=== PATIENT | male | born 1975 | race Caucasian/White ===

== ENCOUNTER 2016-09-26 06:11 | Day surgery (SDC) | payer OTHER ==
[2016-09-26] VITALS (10 sets, daily range): BP systolic 90–123; BP diastolic 34–76; PULSE 52–68; RESP 10–17; O2SAT 95–98
[~2016-09-26] VITALS: Ht 177.8 cm; Wt 79.8 kg
[~2016-09-26 06:11] MED LIST: CeFAZolin 2 Gm/50 mL D5W IV Premix IV ONE; LORA0.5T PO; Lactated Ringer's 1,000 ML IV ONE; MULT-1018 PO
[2016-09-26] MEDS ORDERED: fentaNYL-PF 50 mCg/mL 2 mL Inj ONE (06:12)
[2016-09-26] MEDS ORDERED: Propofol 10,000 mCg/mL 20 mL Inj ONE (06:12)
[2016-09-26] MEDS ORDERED: Dexamethasone 4 mg/mL Inj ONE (06:12)
[2016-09-26] MEDS ORDERED: Ondansetron 2 mg/mL 2 mL Inj ONE (06:12)
[2016-09-26] MEDS ORDERED: MetoCLOpramide 5 mg/mL 2 mL Inj ONE (06:12)
[2016-09-26] MEDS ORDERED: Lactated Ringer's 1,000 ML IV ONE (06:32)
[2016-09-26] MEDS ORDERED: LISI10TA PO (07:01)
--- NOTE | 2016-09-26 07:17 | PCM.HPANE ---
Patient Data Surgeon Admitting Provider: Attending Provider:Adeel Perkins MD Primary Care Physician:Betty Nunez Other Provider:Светлана Shirley Anesthesia Reason for Visit Right Inguinal Hernia Ht/WT & BMI Height (Feet): 5 Height (Inches): 10.00 Weight (Kilograms): 79.830 Body Mass Index 25.00 Allergies Coded Allergies: paroxetine (Verified Allergy, Unknown, 09/21/16) sertraline (Verified Allergy, Unknown, 09/21/16) Past Anesthesia History Anesthesia History: Denies:: Anesthesia Reactions Diabetes History Hx Diabetes?: No Medications Hypertension Medication: No Home Meds Incl Beta Jude: No Reported Medications Lisinopril 10 Mg [id number] Mg PO DAILY 30 Days Ref 0 09/26/16 Multivitamin (Multi Vitamin Daily)1 Each Tablet1 Each PO DAILY 30 Days Ref 0 09/22/16 Lorazepam 0.5 Mg Tablet0.5 Mg PO TID PRN For Anxiety Ref 0 09/21/16 Discontinued Reported Medications Citalopram Hydrobromide (Celexa)40 Mg [id number] Mg PO DAILY Ref 0 09/21/16 History History of ENT Problems?: No Hx of Heart Problems?: Yes Cardiovascular History: Denies:: Hypertension (being monitored- no rx) Irregular Heartbeat Hx of Respiratory Problem?: No Respiratory History: Denies:: Asthma COPD Emphysema Oxygen Administration Use of C-PAP Machine Hx Neurologic Problems?: No Hx of GI Problems?: Yes Gastrointestinal History: Denies:: Gall Bladder Disease Gastroesphageal Reflux Gastrointestinal Bleeding Hiatal Hernia Other GI Pertinent History: right inguinal hernia current admission problem, past hx of left inguinal hernia repair Hx of Problems?: No Male Hx: Denies:: Prostate Problems Skin History: Denies:: History Skin Disorders? Pressure Ulcers Hx Musculoskeletal Problems?: No Hx of Psycho/Social Problems?: Yes Psycho Social History: Positive for:: Anxiety Hx Surgeries?: Yes (left inguinal hernia) Hx Any Other Health Problems?: Yes Other History: Denies:: Cancer Thyroid Disease Hx Diabetes: No Hx Alcohol Use: YesAlcoholic Drinks Per Day: 2-3 drinks weeklyHx Substance Use : NoHave You Smoked inLast 12 mo: Yes Stop/Bang Treated for Sleep Apnea?: No Do You Have a CPAP Machine?: No S-Snoring: Do You Snore Loudly: No T-Tired: feel tired, fatigued: No O-Obsered: Observed not breath: No P-Blood Pressure: treated: No B- Body Mass Index > 35 kg/m2: No A- Age over 50: No N- Neck Large Circumference: No G- Gender Male: Yes EDELMIRA Total Score: 1 EDELMIRA Risk Assessment: Low Risk, <3 Yes Risk Assessment Category Category 1A: Patient has history of documented sleep apnea, and HAS NOT received any narcotic, sedative or anesthesia administration during this stay. Category 1B: Patient has history of documented sleep apnea, and HAS received any narcotic , sedative or anesthesia administration during this stay Category 2: Patient has SUSPECTED Obstructive Sleep Apnea, and HAS received any narcotic , sedative or anesthesia administration during this stay. Category 3: Patient has SUSPECTED Obstructive Sleep Apnea and HAS NOT received narcotic, sedative or anesthesia administration during this stay. Category 4: Outpatient in Procedural Areas with known sleep apnea or who screen positive for High Risk via the STOP/BANG questionnaire. Exam Exam Vital Signs Vital Signs Date Time Temp Pulse Resp B/P Pulse Ox O2 Delivery O2 Flow Rate FiO2 09/26/16 06:33 35.6 52 17 115/76 98 Room Air General Appearance: Oriented X3 HEENT/AIRWAY: MP 2 Lungs: Normal Air Movement Heart: Regular Rate/Rhythm Meds/Labs/Diagnostics Admission Meds Current Medications Lactated Ringer's (Lr) 1,000 ml @ ud STK-MED ONCE IV Last administered on 09/26t 06:32; Start 09/26/16 at 06:32; Stop 09/26/16 at 06:33; Status DC Plan Impression Patient chart reviewed, patient interviewed and anesthestic plan with risks, benefits, and alternatives discussed, and informed consent obtained. NPO Status: 09/25@1800 ASA Physical Status: ASA2 Mod Systemic Disease Anesthetic Plan: GA Bene/Risks/Altern/Consents: Yes HP Complete Prior to Induction: Yes Roscoe Medeiros MD Sep 26, 2016 07:17
[2016-09-26] MEDS ORDERED: Bupivacaine-MPF 0.5% 30 mL Inj INJ ONE (07:30)
[2016-09-26] MEDS ORDERED: MetoCLOpramide 5 mg/mL 2 mL Inj IVPUSH PRN (07:40)
[2016-09-26] MEDS ORDERED: Phenylephrine 10,000 mCg/mL Inj IVPUSH PRN (07:40)
[2016-09-26] MEDS ORDERED: Dexamethasone 4 mg/mL Inj IVPUSH PRN (07:40)
[2016-09-26] MEDS ORDERED: Ondansetron 2 mg/mL 2 mL Inj IVPUSH PRN (07:40)
[2016-09-26] MEDS ORDERED: Lactated Ringer's 1,000 ML IV SCH (07:40)
[2016-09-26] MEDS ORDERED: HYDROmorphone 1 mg/mL Inj IVPUSH PRN (07:40)
[2016-09-26] MEDS ORDERED: fentaNYL-PF 50 mCg/mL 2 mL Inj IVPUSH PRN (07:40)
[2016-09-26] MEDS ORDERED: EPHEDrine Sulfate 50 mg/mL Inj IVPUSH PRN (07:40)
[2016-09-26] MEDS ORDERED: Lactated Ringer's 500 ML IV PRN (07:40)
--- NOTE | 2016-09-26 09:12 | PCM.SURGPO ---
Immediate Operative Note Date of Surgery: Sep 26, 2016 Pre Operative Diagnosis Right inguinal hernia Post Operative Diagnosis Direct Right Inguinal hernia Procedure Open repair of right inguinal hernia with mesh Surgeon and Mixed Animal Veterinarian Surgeon: Adeel Perkins MD Assistants: YASMIN Beck, Purnima Ching MS3 Findings Direct Hernia Complications There were no periprocedural complications identified. Surgical Specimen Removed: No Specimen sent to Pathology: No Anesthetic Administered: GA Grafts, Implants: Implants-See Implant Record Output, Estimated Blood Loss: 0 Blood Admin during surgery: No Attending Statement Maternal Fetal Physician Listed was medically necessary for the completion of the case Adeel Perkins MD Sep 26, 2016 09:12
[2016-09-26] MEDS ORDERED: OXYC5TAB72 PO (09:52)
[2016-09-26] MEDS ORDERED: POLY17PO6 PO (09:52)
--- NOTE | 2016-09-26 10:22 | OP ---
[address] [address] OPERATIVE REPORT PATIENT: THADDEUS CHOUDHARY : 1975 MR#: [id number] ADMIT: 09/26/2016 JOB ID: [id number] DATE OF SURGERY: 09/26/2016 PREOPERATIVE DIAGNOSIS(ES): Right inguinal hernia. POSTOPERATIVE DIAGNOSIS(ES): Right direct inguinal hernia. PROCEDURE PERFORMED: Open repair of right inguinal hernia with mesh. SURGEON: Adeel Perkins MD EXECUTIVE SEARCH CONSULTANT: RYNE Graham, MS3 COMPLICATIONS: None. CONDITION OF THE PATIENT: Stable. INDICATIONS: The patient is a 41-year-old gentleman who started developing a pulling sensation in the right groin and testicle a few weeks prior to meeting me in July of this year. He had a left inguinal hernia repair 12 years ago, at which time, he had severe swelling all the way into the scrotum, but he did not have pain like this before. After discussing the risks, benefits, and alternatives, he was able to quit smoking. He is here for operative repair. PROCEDURE DETAILS: He was placed in supine position. Underwent smooth induction of general anesthesia. Right groin was prepped and draped in the usual sterile fashion. Surgical time-out was undertaken using safety checklist, and all were in agreement. I began by making an incision along Shayla's lines immediately superior to the pubic tubercle, extending laterally, divided the skin and subcutaneous tissue sharply, divided the Jag's fascia and exposed the external oblique aponeurosis. After opening the external oblique aponeurosis all the way to the external inguinal ring, the spermatic cord and the contents of the inguinal canal were away from the external oblique. The cord was then encircled with a Ed drain and was lifted anteriorly, while the hernia which was obviously coming from the floor was dissected free from the cord structures. I then opened the external spermatic fascia to follow the cord all the way to the deep inguinal ring, and did not find any obvious evidence of an indirect inguinal hernia sac. After that, I repaired the inguinal floor with a 3 x 6 Marlex mesh cut appropriately, anchored to the pubic tubercle inferomedially, shelving edge of the inguinal ligament inferiorly, and the rectus abdominis medially. A new deep inguinal ring was constructed between the leaves of the mesh. The mesh was found to be lying without any kinks. Before doing the mesh repair, I actually imbricated the floor of the inguinal canal to keep the hernia reduced while we do the repair. The external oblique aponeurosis was then reapproximated with a running 3-0 PDS. The same stitch was used to imbricate the inguinal floor. The Jag's was reapproximated with 3-0 Vicryl. Skin was reapproximated with 4-0 Monocryl. Steri-Strips and sterile dressing were applied. The patient was recovered from anesthesia and was taken to the recovery room in stable condition.
--- NOTE | 2016-09-26 12:21 | PCM.ANEP2 ---
Post Anesthesia Evaluation ASA/CMS Post Anesthesia VS in Patient's Normal Range?: Yes Resp Stable; Airway Patent?: Yes CV Function & Hydration Stable: Yes Mental Status Recovered?: Yes Pain control Satisfactory?: Yes N/V Control Satisfactory?: Yes Roscoe Meediros MD Sep 26, 2016 12:21
--- NOTE | 2016-09-26 12:21 | PCM.ANEP1 ---
Post Anesthesia Phase 1 PACU Phase 1 Assessment Date of Service: Sep 26, 2016 Vital Signs Vital Signs Date Time Temp Pulse Resp B/P Pulse Ox O2 Delivery O2 Flow Rate FiO2 09/26/16 10:35 64 17 123/73 95 Room Air 09/26/16 09:52 36.6 68 16 104/66 95 Room Air 09/26/16 09:44 62 10 114/69 96 Room Air 09/26/16 09:34 36.5 64 13 102/59 96 Room Air 09/26/16 09:30 60 11 97/57 95 Room Air 09/26/16 09:25 58 13 94/53 96 Room Air 09/26/16 09:20 61 12 93/48 98 Simple Mask 8 09/26/16 09:15 58 12 90/50 98 Simple Mask 8 09/26/16 09:12 36.7 58 16 94/34 98 Simple Mask 8 09/26/16 06:33 35.6 52 17 115/76 98 Room Air Anesthetic Administered: GA Level of Alertness: Awake, talking Pain: No Nausea or Vomiting: No Airway Device: Oralpharangeal Airway Oxygen Delivery: Room Air Lungs: Normal Air Movement Roscoe Medeiros MD Sep 26, 2016 12:21
[2016-09-27] MEDS ORDERED: Polyethylene Glycol (PEG) 17 Gm Powder PO SCH (08:30)
== END 2016-09-26 23:59 | disposition home or self-care (01) ==
LOC: SAS 06:11
PROVIDERS: ATTEND Student in an Organized Health Care Education/Training Program
DX: K40.90 Unilateral inguinal hernia, without obstruction or gangrene, not specified as recurrent (principal); Z87.891 Personal history of nicotine dependence
CPT/HCPCS: 49505; C1781; J0690; J1100; J2405; J2765; J7120